=== PATIENT | male | born 1950 | race Caucasian/White ===

== ENCOUNTER → 2023-07-17 08:43 | Outpatient (REF) | payer MEDICARE, SELFPAY ==
[2023-07-17 11:16] LABS: % Basophils 0.7 % (0-2); % Eosinophils 4.2 % (0-6); % Immature Granulocytes 0.3 % (0-0.5); % Lymphocytes 31.1 % (20.5-51.1); % Neutrophils 54.7 % (42.2-75.2); Absolute Basophils 0.1 10^3/uL (0-0.2); Absolute Eosinophils 0.3 10^3/uL (0-0.7); Absolute Lymphocytes 2.2 10^3/uL (1.2-3.4); Absolute Monocytes 0.7 10^3/uL (0.1-0.6); Absolute Neutrophils 3.9 10^3/uL (1.4-6.5); Hematocrit 32.3 % (39.0-52.0); Hemoglobin 10.8 g/dL (13.0-18.0); Mean Corp Hgb Conc. 33.4 g/dL (33.0-37.0); Mean Corpuscular Hgb 33.3 pg (27.0-31.0); Mean Corpuscular Volume 99.7 fL (80.0-94.0); Mean Platelet Volume 8.8 fL (7.4-10.4); Nucleated Red Blood Cells % 0 % (-); Platelet Count 305 10^3/uL (130-400); Red Blood Cell Count 3.24 10^6/uL (4.70-6.10); Red Cell Dist. Width 15.3 % (11.5-14.5); White Blood Cell Count 7.2 10^3/uL (4.8-10.8)
[2023-07-17 12:25] LABS: Vitamin B12 463 pg/ml (239-931)
== END ==
LOC: HWLAB 08:43
PROVIDERS: ATTENDING PHYSICIAN Internal Medicine Hematology & Oncology; FAMILY PHYSICIAN Nurse Practitioner Family
DX: D64.9 Anemia, unspecified (principal); Z79.02 Long term (current) use of antithrombotics/antiplatelets; D51.3 Other dietary vitamin B12 deficiency anemia; D47.2 Monoclonal gammopathy
CPT/HCPCS: 36415; 82607; 85025

== ENCOUNTER → 2023-08-14 07:43 | Outpatient (REF) | payer MEDICARE, SELFPAY ==
[2023-08-14 12:04] LABS: % Basophils 0.8 % (0-2); % Eosinophils 3.6 % (0-6); % Immature Granulocytes 0.3 % (0-0.5); % Lymphocytes 32.9 % (20.5-51.1); % Neutrophils 50.4 % (42.2-75.2); Absolute Basophils 0.1 10^3/uL (0-0.2); Absolute Eosinophils 0.2 10^3/uL (0-0.7); Absolute Monocytes 0.7 10^3/uL (0.1-0.6); Absolute Neutrophils 3.1 10^3/uL (1.4-6.5); Hematocrit 30.9 % (39.0-52.0); Hemoglobin 10.9 g/dL (13.0-18.0); Mean Corp Hgb Conc. 35.3 g/dL (33.0-37.0); Mean Corpuscular Hgb 33.6 pg (27.0-31.0); Mean Corpuscular Volume 95.4 fL (80.0-94.0); Mean Platelet Volume 8.9 fL (7.4-10.4); Nucleated Red Blood Cells % 0 % (-); Platelet Count 282 10^3/uL (130-400); Red Blood Cell Count 3.24 10^6/uL (4.70-6.10); Red Cell Dist. Width 14.8 % (11.5-14.5); Reticulocyte Count 3.3 % (0.4-2.8); White Blood Cell Count 6.1 10^3/uL (4.8-10.8)
[2023-08-14 12:15] LABS: Iron 133 ug/dl (49-181)
[2023-08-14 12:25] LABS: Percent Saturation 45 % (20-50); Total Iron Binding Capacity 291 ug/dl (261-462)
[2023-08-14 13:05] LABS: Vitamin B12 458 pg/ml (239-931)
[2023-08-15 14:25] LABS: Erythropoietin (EPO) 47 mU/mL (4-27)
== END ==
LOC: RAD 07:43
PROVIDERS: ATTENDING PHYSICIAN Surgery Vascular Surgery; FAMILY PHYSICIAN Nurse Practitioner Family; REFERRING PHYSICIAN Nurse Practitioner Adult Health
DX: I77.9 Disorder of arteries and arterioles, unspecified (principal); D64.9 Anemia, unspecified; Z79.02 Long term (current) use of antithrombotics/antiplatelets; D51.3 Other dietary vitamin B12 deficiency anemia; D47.2 Monoclonal gammopathy
CPT/HCPCS: 36415; 82607; 82668; 82728; 83540; 83550; 85025; 85045; 93922; 93925

== ENCOUNTER → 2023-09-11 12:22 | Outpatient (REF) | payer MEDICARE, SELFPAY ==
[2023-09-11 15:44] LABS: % Basophils 0.6 % (0-2); % Eosinophils 3.5 % (0-6); % Immature Granulocytes 0.4 % (0-0.5); % Lymphocytes 36.7 % (20.5-51.1); % Monocytes 9.7 % (1.7-9.3); % Neutrophils 49.1 % (42.2-75.2); Absolute Basophils 0.1 10^3/uL (0-0.2); Absolute Eosinophils 0.3 10^3/uL (0-0.7); Absolute Lymphocytes 2.8 10^3/uL (1.2-3.4); Absolute Monocytes 0.8 10^3/uL (0.1-0.6); Absolute Neutrophils 3.8 10^3/uL (1.4-6.5); Hemoglobin 10.6 g/dL (13.0-18.0); Mean Corp Hgb Conc. 35.3 g/dL (33.0-37.0); Mean Corpuscular Hgb 33.8 pg (27.0-31.0); Mean Corpuscular Volume 95.5 fL (80.0-94.0); Nucleated Red Blood Cells % 0 % (-); Platelet Count 315 10^3/uL (130-400); Red Blood Cell Count 3.14 10^6/uL (4.70-6.10); Red Cell Dist. Width 16.4 % (11.5-14.5); White Blood Cell Count 7.7 10^3/uL (4.8-10.8)
== END ==
LOC: HWLAB 12:22
PROVIDERS: ATTENDING PHYSICIAN Nurse Practitioner Adult Health; FAMILY PHYSICIAN Nurse Practitioner Family
DX: D64.9 Anemia, unspecified (principal); Z79.02 Long term (current) use of antithrombotics/antiplatelets; D51.3 Other dietary vitamin B12 deficiency anemia; D47.2 Monoclonal gammopathy
CPT/HCPCS: 36415; 85025

== ENCOUNTER → 2023-10-02 06:59 | Outpatient (REF) | payer MEDICARE, SELFPAY ==
[2023-10-02 09:21] LABS: % Basophils 0.8 % (0-2); % Eosinophils 3.9 % (0-6); % Immature Granulocytes 0.2 % (0-0.5); % Lymphocytes 38.6 % (20.5-51.1); % Monocytes 10.5 % (1.7-9.3); Absolute Basophils 0.1 10^3/uL (0-0.2); Absolute Eosinophils 0.3 10^3/uL (0-0.7); Absolute Lymphocytes 2.6 10^3/uL (1.2-3.4); Absolute Monocytes 0.7 10^3/uL (0.1-0.6); Absolute Neutrophils 3.1 10^3/uL (1.4-6.5); Hemoglobin 10.7 g/dL (13.0-18.0); Mean Corp Hgb Conc. 34.5 g/dL (33.0-37.0); Mean Corpuscular Hgb 33.3 pg (27.0-31.0); Mean Corpuscular Volume 96.6 fL (80.0-94.0); Mean Platelet Volume 8.4 fL (7.4-10.4); Nucleated Red Blood Cells % 0 % (-); Platelet Count 282 10^3/uL (130-400); Red Blood Cell Count 3.21 10^6/uL (4.70-6.10); Red Cell Dist. Width 16.2 % (11.5-14.5); White Blood Cell Count 6.7 10^3/uL (4.8-10.8)
[2023-10-02 10:10] LABS: TSH Reflex To Free T4 2.64 uIU/ml (0.47-4.68)
[2023-10-02 10:35] LABS: ALT (SGPT) 29 U/L (0-50); AST (SGOT) 35 U/L (17-59); Albumin 4.5 g/dl (3.5-5.0); Alkaline Phosphatase 86 U/L (38-126); Blood Urea Nitrogen 11 mg/dl (9-20); Calcium 9.7 mg/dl (8.4-10.2); Carbon Dioxide 28 mmol/L (22-30); Chloride 98 mmol/L (98-107); Glucose 96 mg/dl (70-99); HDL Cholesterol 35 mg/dl; LDL Cholesterol, Calculated 15 mg/dl; Magnesium 1.5 mg/dl (1.6-2.3); Potassium 4.8 mmol/L (3.5-5.1); Total Bilirubin 1.2 mg/dl (0.2-1.3); Total Cholesterol 113 mg/dl (50-199); Total Protein 6.9 g/dl (6.3-8.2); Triglyceride 319 mg/dl (10-149); Very Low Density Lipoprotein 63 mg/dl (0-30); eGFR > 60.00
[2023-10-02 10:36] LABS: Sodium 137 mmol/L (135-145)
[2023-10-02 10:49] LABS: PSA, Total - Screen 0.69 ng/ml (0.0-4.0)
== END ==
LOC: HWLAB 06:59
PROVIDERS: ATTENDING PHYSICIAN Nurse Practitioner Family
DX: Z12.5 Encounter for screening for malignant neoplasm of prostate (principal); I73.9 Peripheral vascular disease, unspecified; I10 Essential (primary) hypertension; E87.1 Hypo-osmolality and hyponatremia; E83.42 Hypomagnesemia; Z00.00 Encounter for general adult medical examination without abnormal findings
CPT/HCPCS: 36415; 80053; 80061; 83735; 84443; 85025; G0103

== ENCOUNTER → 2023-10-16 07:42 | Outpatient (REF) | payer MEDICARE, SELFPAY ==
[2023-10-16 09:34] LABS: % Basophils 0.7 % (0-2); % Eosinophils 2.6 % (0-6); % Immature Granulocytes 0.3 % (0-0.5); % Lymphocytes 39.2 % (20.5-51.1); % Monocytes 7.4 % (1.7-9.3); % Neutrophils 49.8 % (42.2-75.2); Absolute Basophils 0.1 10^3/uL (0-0.2); Absolute Eosinophils 0.2 10^3/uL (0-0.7); Absolute Lymphocytes 2.7 10^3/uL (1.2-3.4); Absolute Monocytes 0.5 10^3/uL (0.1-0.6); Absolute Neutrophils 3.5 10^3/uL (1.4-6.5); Hemoglobin 11.2 g/dL (13.0-18.0); Mean Corp Hgb Conc. 33.9 g/dL (33.0-37.0); Mean Corpuscular Hgb 32.9 pg (27.0-31.0); Mean Corpuscular Volume 97.1 fL (80.0-94.0); Mean Platelet Volume 8.6 fL (7.4-10.4); Nucleated Red Blood Cells % 0 % (-); Platelet Count 303 10^3/uL (130-400); White Blood Cell Count 6.9 10^3/uL (4.8-10.8)
[2023-10-16 09:43] LABS: Iron 117 ug/dl (49-181)
[2023-10-16 09:56] LABS: Percent Saturation 38 % (20-50); Total Iron Binding Capacity 303 ug/dl (261-462)
[2023-10-16 10:29] LABS: Vitamin B12 506 pg/ml (239-931)
[2023-10-19 10:09] LABS: Albumin 4.49 g/dL (3.75-5.01); Alpha 2 Globulin 0.66 g/dL (0.48-1.05); Free Kappa Light Chains,Quant 14.64 mg/L (3.30-19.40); Free Lambda Light Chains,Quant 26.67 mg/L (5.71-26.30); IgA 210 mg/dL (68-408); IgG 965 mg/dL (768-1632); IgM 27 mg/dL (35-263); Immunofixation Electrophoresis IFE Done; Kappa/Lambda Fr Light Ratio 0.55 (0.26-1.65); Monoclonal Protein 0.41 g/dL (<=0.00)
== END ==
LOC: HWLAB 07:42
PROVIDERS: ATTENDING PHYSICIAN Nurse Practitioner Adult Health; FAMILY PHYSICIAN Nurse Practitioner Family
DX: D64.9 Anemia, unspecified (principal); Z79.02 Long term (current) use of antithrombotics/antiplatelets; D51.3 Other dietary vitamin B12 deficiency anemia; D47.2 Monoclonal gammopathy
CPT/HCPCS: 36415; 82607; 82728; 82784; 83521; 83540; 83550; 84155; 84165; 85025; 86334

== ENCOUNTER → 2024-02-13 10:12 | Outpatient (REF) | payer MEDICARE, SELFPAY ==
[2024-02-13 12:36] LABS: % Basophils 0.8 % (0-2); % Eosinophils 4.2 % (0-6); % Immature Granulocytes 0.1 % (0-0.5); % Lymphocytes 33.2 % (20.5-51.1); % Monocytes 9.2 % (1.7-9.3); % Neutrophils 52.5 % (42.2-75.2); Absolute Basophils 0.1 10^3/uL (0-0.2); Absolute Eosinophils 0.3 10^3/uL (0-0.7); Absolute Lymphocytes 2.4 10^3/uL (1.2-3.4); Absolute Monocytes 0.7 10^3/uL (0.1-0.6); Absolute Neutrophils 3.9 10^3/uL (1.4-6.5); Hematocrit 33.4 % (39.0-52.0); Mean Corp Hgb Conc. 32.9 g/dL (33.0-37.0); Mean Corpuscular Hgb 32.9 pg (27.0-31.0); Mean Platelet Volume 8.6 fL (7.4-10.4); Nucleated Red Blood Cells % 0 % (-); Platelet Count 262 10^3/uL (130-400); Red Blood Cell Count 3.34 10^6/uL (4.70-6.10); Red Cell Dist. Width 15.9 % (11.5-14.5); White Blood Cell Count 7.4 10^3/uL (4.8-10.8)
[2024-02-13 12:58] LABS: ALT (SGPT) 37 U/L (0-50); AST (SGOT) 36 U/L (17-59); Albumin 4.6 g/dl (3.5-5.0); Alkaline Phosphatase 96 U/L (38-126); Blood Urea Nitrogen 12 mg/dl (9-20); Calcium 9.4 mg/dl (8.4-10.2); Carbon Dioxide 28 mmol/L (22-30); Chloride 100 mmol/L (98-107); Glucose 122 mg/dl (70-99); Magnesium 1.8 mg/dl (1.6-2.3); Potassium 4.6 mmol/L (3.5-5.1); Sodium 135 mmol/L (135-145); Total Bilirubin 0.9 mg/dl (0.2-1.3); Total Protein 7.2 g/dl (6.3-8.2); eGFR > 60.00
== END ==
LOC: HWLAB 10:12
PROVIDERS: ATTENDING PHYSICIAN Nurse Practitioner Family
DX: R19.5 Other fecal abnormalities (principal); K14.8 Other diseases of tongue
CPT/HCPCS: 36415; 80053; 83735; 85025

== ENCOUNTER → 2024-04-09 08:35 | Outpatient (REF) | payer MEDICARE, SELFPAY | LOC: RAD 08:35 | PROVIDERS: ATTENDING PHYSICIAN Podiatrist Foot & Ankle Surgery; FAMILY PHYSICIAN Nurse Practitioner Family | DX: I70.235 Atherosclerosis of native arteries of right leg with ulceration of other part of foot (principal) | CPT/HCPCS: 73630 ==

== ENCOUNTER → 2024-04-30 08:35 | Outpatient (REF) | payer MEDICARE, SELFPAY | LOC: RAD 08:35 | PROVIDERS: ATTENDING PHYSICIAN Surgery Vascular Surgery; FAMILY PHYSICIAN Nurse Practitioner Family | DX: I73.9 Peripheral vascular disease, unspecified (principal) | CPT/HCPCS: 93922; 93925 ==

== ENCOUNTER → 2024-05-07 08:27 | Outpatient (REF) | payer MEDICARE, SELFPAY ==
[2024-05-07 11:55] LABS: HDL Cholesterol 41 mg/dl; LDL Cholesterol, Calculated 44 mg/dl; Total Cholesterol 127 mg/dl (50-199); Triglyceride 210 mg/dl (10-149); Very Low Density Lipoprotein 42 mg/dl (0-30)
== END ==
LOC: HWLAB 08:27
PROVIDERS: ATTENDING PHYSICIAN Nurse Practitioner; FAMILY PHYSICIAN Nurse Practitioner Family
DX: I73.9 Peripheral vascular disease, unspecified (principal); E78.1 Pure hyperglyceridemia
CPT/HCPCS: 36415; 80061

== ENCOUNTER → 2024-05-13 08:56 | Outpatient (REF) | payer MEDICARE, SELFPAY ==
[2024-05-13 10:07] LABS: APTT 29.1 Sec (23.4-35.0); INR 1.07; PT 14.2 Sec (11.4-14.6)
[2024-05-13 10:25] LABS: Hemoglobin 10.5 g/dL (13.0-18.0); Mean Corp Hgb Conc. 33.9 g/dL (33.0-37.0); Mean Corpuscular Hgb 33.1 pg (27.0-31.0); Mean Corpuscular Volume 97.8 fL (80.0-94.0); Mean Platelet Volume 8.4 fL (7.4-10.4); Platelet Count 255 10^3/uL (130-400); Red Blood Cell Count 3.17 10^6/uL (4.70-6.10); Red Cell Dist. Width 16.5 % (11.5-14.5); White Blood Cell Count 5.9 10^3/uL (4.8-10.8)
[2024-05-13 10:40] LABS: Blood Urea Nitrogen 11 mg/dl (9-20); Calcium 9.7 mg/dl (8.4-10.2); Carbon Dioxide 26 mmol/L (22-30); Chloride 101 mmol/L (98-107); Glucose 106 mg/dl (70-99); Potassium 4.9 mmol/L (3.5-5.1); Sodium 136 mmol/L (135-145); eGFR > 60.00
[2024-05-13 11:11] LABS: % Eosinophils 2.7 % (0-6); % Immature Granulocytes 0.2 % (0-0.5); % Lymphocytes 39.1 % (20.5-51.1); % Monocytes 10.3 % (1.7-9.3); % Neutrophils 46.7 % (42.2-75.2); Absolute Basophils 0.1 10^3/uL (0-0.2); Absolute Eosinophils 0.2 10^3/uL (0-0.7); Absolute Lymphocytes 2.3 10^3/uL (1.2-3.4); Absolute Monocytes 0.6 10^3/uL (0.1-0.6); Absolute Neutrophils 2.7 10^3/uL (1.4-6.5); Nucleated Red Blood Cells % 0 % (-)
== END ==
LOC: SDSPAT 08:56
PROVIDERS: ATTENDING PHYSICIAN Surgery Vascular Surgery; FAMILY PHYSICIAN Nurse Practitioner Family
DX: E87.1 Hypo-osmolality and hyponatremia (principal); I73.9 Peripheral vascular disease, unspecified; R55 Syncope and collapse; I70.235 Atherosclerosis of native arteries of right leg with ulceration of other part of foot
CPT/HCPCS: 36415; 80048; 85025; 85610; 85730; 93005

== ENCOUNTER 2024-05-16 10:06 | Day surgery (SDC) | payer MEDICARE, SELFPAY ==
[2024-05-13 09:28] VITALS: BMI 29.0
[2024-05-16] VITALS (22 sets, daily range): BP systolic 136–177; BP diastolic 70–89; BMI 29.2
--- NOTE | 2024-05-16 12:39 | W.SUR.PREOP ---
Pre-Operative Surgical Note
-
I have examined this patient prior to the performance of the scheduled procedure.
The patient's condition is unchanged from the time of the current History and
Physical and the patient is able to undergo the scheduled procedure.
[2024-05-16] MEDS: NSS 500 IV (12:40)
[2024-05-16] MEDS: NSS 1000 IV (15:39)
--- NOTE | 2024-05-16 15:55 | OR.RPT ---
Operative Report
Operative Report
Date of Operation: 05/16/2024
Pre Op Diagnosis:
1. [place] artery atherosclerosis with right foot ulceration
2. Diabetes with atherosclerotic disease
Post Op Diagnosis:
1. [place] artery atherosclerosis with right foot ulceration
2. Diabetes with atherosclerotic disease
Procedure:
1.) Balloon angioplasty of distal right anterior tibial artery (3 mm x 150 mm angioplasty balloon)
2.) Diagnostic right lower extremity arteriogram
3.) Ultrasound-guided percutaneous ANTEGRADE access to the right femoral artery
Surgeon: Kenton Mcknight III, MD
Telecommunicator Supervisor: Bob Baires MD PGY1
Anesthesia: Sedation with local
Fluoroscopy:
20.7 min
55 mGy
10.05 gy.cm2
Complications: None
Estimated Blood Loss: Less than 10 cc
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 He developed a plantar surface ulceration on the right.
Procedure in Detail: Dustin Reyes was correctly identified and placed supine on the operating table. After adequate induction of anesthesia the bilateral groins were prepped and draped in the usual sterile fashion. A timeout was performed with the
nursing and anesthesia staff confirming the patient's identity as well as the nature and laterality of the procedure.
The right common femoral artery was identified under ultrasound guidance. The artery was patent. The superior and inferior aspects of the femoral head were identified with radiographic guidance and marked at the skin level. The proposed puncture
site was infiltrated with local anesthesia. Under ultrasound guidance we accessed the right common femoral artery at the superficial femoral artery origin with a micropuncture needle and upsized to a 5 Fr sheath over a Bentson wire. A diagnostic
right lower extremity arteriogram was then performed which demonstrated the following:
RIGHT LOWER EXTREMITY:
Superficial femoral artery: Patent with no stenosis identified
Popliteal artery: Patent with no stenosis identified
Anterior tibial artery: Patent. Dominant tibial artery runoff vessel. Scattered areas of moderate stenosis distally. Continues across the ankle to form the dorsalis pedis artery which then supplies the forefoot and area of the first metatarsal
head ulceration.
Tibioperoneal trunk: Patent with no stenosis identified
Peroneal artery: Patent to the ankle
Posterior tibial artery: Patent proximally but occluded distally with no distal reconstitution
ENDOVASCULAR INTERVENTION: Systemic heparin was administered. Exchanged out for a 5 Fr 45 cm sheath over a [employer] wire and placed the radiopaque tip in the popliteal artery. Selected the anterior tibial artery under roadmap guidance with a 0.014
catheter and wire. Anterior tibial artery disease was crossed with this set up. The wire was advanced into the dorsalis pedis artery. Under roadmap guidance I then brought into position a 3 mm x 150 mm angioplasty balloon. This was placed in the
desired location across the distal anterior tibial artery stenoses. The balloon was inflated to nominal pressure and held in place for 3 minutes. The balloon was then slowly deflated and removed over the wire.
COMPLETION ARTERIOGRAM: Excellent technical result. Widely patent anterior tibial artery and dorsalis pedis artery with brisk flow and no residual stenosis identified. Brisk flow identified to the wound area on the right foot.
Satisfied with this result we concluded the procedure. Protamine was administered. The wire was removed. The sheath was removed and direct manual pressure was held over the puncture site until hemostasis was achieved. A sterile dressing was
applied.
The patient tolerated the procedure well and was taken to the recovery area in stable condition.
Attestation: I was present and responsible for the entire procedure.
Signed:
Kenton Mcknight III, MD
Vascular Surgery
[facility]
== END 2024-05-16 20:00 | disposition home or self-care (01) ==
LOC: CATH 10:06
PROVIDERS: ATTENDING PHYSICIAN Surgery Vascular Surgery; OTHER PHYSICIAN Internal Medicine Cardiovascular Disease; PRIMARYCARE PHYSICIAN Nurse Practitioner Family
DX: I70.235 Atherosclerosis of native arteries of right leg with ulceration of other part of foot (principal); L97.519 Non-pressure chronic ulcer of other part of right foot with unspecified severity; E11.51 Type 2 diabetes mellitus with diabetic peripheral angiopathy without gangrene; E11.621 Type 2 diabetes mellitus with foot ulcer; I70.90 Unspecified atherosclerosis; I10 Essential (primary) hypertension; M10.9 Gout, unspecified
CPT/HCPCS: 37228; C1725; 75710; C1769; C1894; Q9967

== ENCOUNTER → 2024-06-11 08:42 | Outpatient (REF) | payer MEDICARE, SELFPAY | LOC: RAD 08:42 | PROVIDERS: ATTENDING PHYSICIAN Surgery Vascular Surgery; FAMILY PHYSICIAN Nurse Practitioner Family | DX: I73.9 Peripheral vascular disease, unspecified (principal) | CPT/HCPCS: 93922; 93925 ==

== ENCOUNTER → 2024-08-26 08:17 | Outpatient (REF) | payer MEDICARE, SELFPAY ==
[2024-08-26 10:25] LABS: Blood Urea Nitrogen 11 mg/dl (9-20); Calcium 9.1 mg/dl (8.4-10.2); Carbon Dioxide 27 mmol/L (22-30); Chloride 102 mmol/L (98-107); Glucose 112 mg/dl (70-99); Potassium 4.4 mmol/L (3.5-5.1); Sodium 137 mmol/L (135-145); eGFR > 60.00
[2024-08-26 10:44] LABS: Glycohemoglobin (HgbA1c) 4.5 % (4.0-5.6)
== END ==
LOC: HWLAB 08:17
PROVIDERS: ATTENDING PHYSICIAN Nurse Practitioner Family
DX: R73.01 Impaired fasting glucose (principal)
CPT/HCPCS: 36415; 80048; 83036

== ENCOUNTER → 2024-10-20 13:57 | Outpatient (REF) | payer MEDICARE, SELFPAY | LOC: RAD 13:57 | PROVIDERS: ATTENDING PHYSICIAN Registered Nurse; FAMILY PHYSICIAN Nurse Practitioner Family | DX: I73.9 Peripheral vascular disease, unspecified (principal); I70.235 Atherosclerosis of native arteries of right leg with ulceration of other part of foot | CPT/HCPCS: 93922; 93925 ==

== ENCOUNTER → 2024-11-25 10:47 | Outpatient (REF) | payer MEDICARE, SELFPAY ==
[2024-11-25 12:51] LABS: Hematocrit 32.6 % (39.0-52.0); Hemoglobin 11.1 g/dL (13.0-18.0); Mean Corp Hgb Conc. 34.0 g/dL (33.0-37.0); Mean Corpuscular Volume 100.3 fL (80.0-94.0); Nucleated Red Blood Cells % 0 % (-); Platelet Count 296 10^3/uL (130-400); Red Cell Dist. Width 16.5 % (11.5-14.5)
[2024-11-25 13:12] LABS: ALT (SGPT) 28 U/L (0-50); AST (SGOT) 29 U/L (17-59); Albumin 4.8 g/dl (3.5-5.0); Alkaline Phosphatase 79 U/L (38-126); Blood Urea Nitrogen 9 mg/dl (9-20); Calcium 9.5 mg/dl (8.4-10.2); Carbon Dioxide 26 mmol/L (22-30); Chloride 100 mmol/L (98-107); Glucose 113 mg/dl (70-99); HDL Cholesterol 46 mg/dl; Iron 127 ug/dl (49-181); LDL Cholesterol, Calculated 30 mg/dl; Magnesium 1.8 mg/dl (1.6-2.3); Potassium 4.7 mmol/L (3.5-5.1); Sodium 133 mmol/L (135-145); Total Protein 7.6 g/dl (6.3-8.2); Very Low Density Lipoprotein 31 mg/dl (0-30); eGFR > 60.00
[2024-11-25 13:37] LABS: PSA, Total - Screen 0.84 ng/ml (0.0-4.0)
[2024-11-25 13:41] LABS: Ferritin 412.0 ng/ml (17.9-464.0)
== END ==
LOC: HWLAB 10:47
PROVIDERS: ATTENDING PHYSICIAN Nurse Practitioner Family
DX: I10 Essential (primary) hypertension (principal); I73.9 Peripheral vascular disease, unspecified; E83.42 Hypomagnesemia; D64.9 Anemia, unspecified; I25.10 Atherosclerotic heart disease of native coronary artery without angina pectoris; I25.84 Coronary atherosclerosis due to calcified coronary lesion; E78.1 Pure hyperglyceridemia; L97.511 Non-pressure chronic ulcer of other part of right foot limited to breakdown of skin; D47.2 Monoclonal gammopathy; Z13.31 Encounter for screening for depression; Z12.5 Encounter for screening for malignant neoplasm of prostate
CPT/HCPCS: 36415; 80053; 80061; 82728; 83540; 83735; 84443; 85025; G0103

== ENCOUNTER → 2024-12-01 13:41 | Outpatient (REF) | payer MEDICARE, SELFPAY ==
[2024-12-01 16:45] LABS: Blood Urea Nitrogen 10 mg/dl (9-20); Calcium 9.3 mg/dl (8.4-10.2); Carbon Dioxide 26 mmol/L (22-30); Chloride 101 mmol/L (98-107); Glucose 102 mg/dl (70-99); Potassium 4.7 mmol/L (3.5-5.1); Sodium 135 mmol/L (135-145); eGFR > 60.00
== END ==
LOC: HWLAB 13:41
PROVIDERS: ATTENDING PHYSICIAN Nurse Practitioner Family
DX: Z00.00 Encounter for general adult medical examination without abnormal findings (principal); I10 Essential (primary) hypertension; I73.9 Peripheral vascular disease, unspecified; E83.42 Hypomagnesemia; D64.9 Anemia, unspecified; I25.10 Atherosclerotic heart disease of native coronary artery without angina pectoris; I25.84 Coronary atherosclerosis due to calcified coronary lesion; E78.1 Pure hyperglyceridemia; L97.511 Non-pressure chronic ulcer of other part of right foot limited to breakdown of skin; D47.2 Monoclonal gammopathy; Z13.31 Encounter for screening for depression; E87.1 Hypo-osmolality and hyponatremia
CPT/HCPCS: 80048; 82784; 83520; 83521; 84155; 84156; 84165; 86334; 86335